=== PATIENT | male | born 1965 | race Caucasian/White ===

== ENCOUNTER 2017-12-10 18:23 | Emergency (ER) | payer OTHER ==
[2017-12-10 18:32] VITALS: BP 155/97; PULSE 76; RESP 20; TEMP 99.1; O2SAT 99
--- NOTE | 2017-12-10 19:18 | C.PDOC ---
History Of Present Illness 52-year-old male, presents to the emergency department with complaints of pimple on his face. Patient states "it needs to be popped." Denies nausea/ vomiting, fever or any other associated symptoms. No other complaints at this time. Time Seen by Provider: 12/10/17 19:08 Chief Complaint (Nursing): Abnormal Skin Integrity History Per: Patient History/Exam Limitations: no limitations Past Medical History Reviewed: Historical Data, Nursing Documentation, Vital Signs Vital Signs: Last Vital Signs Temp 99.1 F 12/10/17 18:25 Pulse 76 12/10/17 18:25 Resp 20 12/10/17 18:25 BP 155/97 H 12/10/17 18:25 Pulse Ox 99 12/10/17 19:34 - Medical History PMH: Bipolar Disorder Family History: States: No Known Family Hx - Social History Hx Alcohol Use: No Hx Substance Use: No - Immunization History Hx Tetanus Toxoid Vaccination: No Hx Influenza Vaccination: No Hx Pneumococcal Vaccination: No Review Of Systems Constitutional: Negative for: Fever, Chills Respiratory: Negative for: Shortness of Breath Gastrointestinal: Negative for: Vomiting Neurological: Negative for: Headache Physical Exam - Physical Exam Appears: Non-toxic, No Acute Distress Skin: Warm, Dry, No Rash, Other (small "dot-like" pimple w/ minimal erythema to right side of face, no fluctuance or induration, no facial swelling) Head: Atraumatic, Normacephalic Eye(s): bilateral: Normal Inspection Neurological/Psych: Oriented x3, Normal Speech ED Course And Treatment O2 Sat by Pulse Oximetry: 99 (on RA) Pulse Ox Interpretation: Normal Progress Note: miniscule size pimple non fluctuant to face with no swelling. No indication for I& D as requested by pt. Patient will be discharged home and advised to apply warm compress and bacitracin oint. Disposition Counseled Patient/Family Regarding: Diagnosis, Need For Followup - Disposition Referrals: [facility] [Outside] Disposition: HOME/ ROUTINE Disposition Time: 19:15 Condition: STABLE Additional Instructions: Apply warm compress to area' Apply bacitracin oint Return to ER if worse Instructions: Acne (ED) Forms: General Discharge Instructions - Clinical Impression Clinical Impression: Pimples - Scribe Statement The provider has reviewed the documentation as recorded by the Scribe (Zunaira Sarai) All medical record entries made by the Scribe were at my direction and personally dictated by me. I have reviewed the chart and agree that the record accurately reflects my personal performance of the history, physical exam, medical decision making, and the department course for this patient. I have also personally directed, reviewed, and agree with the discharge instructions and disposition.
== END 2017-12-10 19:29 | disposition home or self-care (01) ==
LOC: C.ER 18:23
DX: R23.8 Other skin changes (principal)

== ENCOUNTER 2018-01-01 13:47 | Emergency (ER) | payer OTHER ==
--- NOTE | 2018-01-01 15:10 | C.PDOC ---
History Of Present Illness 52 year old male with PMHx of depression and anxiety is brought to the ED by EMS for possible suicide ideation. Patient reports he has been having issues with his neighbors for a while, patient states he is in the process of moving. Patient reports that today he called Police on his neighbors, he was feeling stressed due to his living situation and blurted out that he couldn't take it anymore, and he wanted to kill himself. Pt now sts it was uttered in frustration , but he didn't mean it. Patient states he is compliant with his medications for anxiety and depression and only goes to see his therapist once a month for medication refill. While in the ED patient denies any SI/HI, hallucinations or physical complaints. Time Seen by Provider: 01/01/18 14:29 Chief Complaint (Nursing): Psychiatric Evaluation History Per: Patient History/Exam Limitations: no limitations Onset/Duration Of Symptoms: Hrs Current Symptoms Are (Timing): Gone Suicide/Self Injury Attempted (Context): None Modifying Factor(s): None Severity: None Recent travel outside of the [place]: No Additional History Per: Patient Past Medical History Reviewed: Historical Data, Nursing Documentation, Vital Signs Vital Signs: Last Vital Signs Temp 98.4 F 01/01/18 16:02 Pulse 77 01/01/18 16:02 Resp 18 01/01/18 16:02 BP 122/83 01/01/18 16:02 Pulse Ox 100 01/01/18 16:02 - Medical History PMH: Anxiety, Bipolar Disorder, Depression, Fractures (right ankle) Surgical History: No Surg Hx Family History: States: Unknown Family Hx - Social History Hx Alcohol Use: No Hx Substance Use: No - Immunization History Hx Tetanus Toxoid Vaccination: No Hx Influenza Vaccination: No Hx Pneumococcal Vaccination: No Review Of Systems Constitutional: Negative for: Fever, Chills Cardiovascular: Negative for: Chest Pain, Palpitations Respiratory: Negative for: Cough, Shortness of Breath Gastrointestinal: Negative for: Nausea, Vomiting, Abdominal Pain Skin: Negative for: Rash Neurological: Negative for: Weakness, Numbness Psych: Negative for: Depression, Suicidal ideation Physical Exam - Physical Exam Appears: Non-toxic, No Acute Distress Skin: Normal Color, Warm, Dry Head: Atraumatic, Normacephalic Eye(s): bilateral: Normal Inspection Nose: No Discharge, No Deformity Oral Mucosa: Moist Neck: Normal ROM, Supple Chest: Symmetrical Cardiovascular: Rhythm Regular, No Murmur Respiratory: Normal Breath Sounds, No Rales, No Rhonchi, No Wheezing Gastrointestinal/Abdominal: Soft, No Tenderness, No Guarding, No Rebound Extremity: Normal ROM, No Deformity, No Swelling Neurological/Psych: Oriented x3, Normal Speech, Normal Cognition Gait: With Assistance (cane) Medical Decision Making Medical Decision Making: Impression: psych evaluation- crisis team 4 pm discussed with Naye from crisis, pt cleared by Dr Hdz for discharge. Disposition Counseled Patient/Family Regarding: Diagnosis, Need For Followup - Disposition Disposition: HOME/ ROUTINE Disposition Time: 16:01 Condition: STABLE Additional Instructions: Please continue to take your medications as prescribed. Follow up with your therapist as scheduled. Return to ER for any concerning symptoms. Forms: [employer] (Surinamese), General Discharge Instructions - Clinical Impression Clinical Impression: Depression - PA / TALENT ASSOCIATE / Resident Statement MD/DO has reviewed & agrees with the documentation as recorded. - Scribe Statement The provider has reviewed the documentation as recorded by the Scribe Gustavo Gallo All medical record entries made by the Scribe were at my direction and personally dictated by me. I have reviewed the chart and agree that the record accurately reflects my personal performance of the history, physical exam, medical decision making, and the department course for this patient. I have also personally directed, reviewed, and agree with the discharge instructions and disposition.
[2018-01-01 16:02] VITALS: BP 122/83; PULSE 77; RESP 18; TEMP 98.4; O2SAT 100
== END 2018-01-01 16:08 | disposition home or self-care (01) ==
LOC: C.ER 13:47
DX: F32.9 Major depressive disorder, single episode, unspecified (principal)